=== PATIENT | male | born 1980 | race American Indian/Alaskan Native ===

== ENCOUNTER 2021-05-01 04:12 | Emergency (ER) | payer SELFPAY ==
--- NOTE | 2021-05-01 05:00 | Emergency Department Report ---
ED General Adult HPI - General Chief complaint: Dental/Oral Stated complaint: DENTAL PAIN Source: patient Mode of arrival: Ambulatory Limitations: No Limitations - History of Present Illness Initial comments: Patient is a 40-year-old -[place] male with no past medical history presents to the ED with complaint of acute onset persistent left mandibular premolar molar toothache with swollen gums for the last 2 months, worse in the last 1 week. Patient states that the pain is especially worsened in the last 24 hours such that he was unable to sleep. Patient denies traumatic injury, fever, chills, cough, sore throat, nasal and sinus congestion, headache, change in vision, neck pain, back pain, or neck pain. MD Complaint: Left mandibular molar and premolar toothache with swollen gums -: Gradual, month(s) (2) Location: mouth Radiation: non-radiation Severity scale (0 -10): 7 Quality: aching, sharp Consistency: constant Improves with: none Worsens with: eating Associated Symptoms: denies other symptoms. denies: confusion, chest pain, cough, diaphoresis, fever/chills, loss of appetite, malaise, nausea/vomiting, rash, seizure, shortness of breath, syncope, weakness Treatments Prior to Arrival: none - Related Data Previous Rx's Medication Instructions Recorded Last Taken Type Acetaminophen/Codeine [Tylenol 1 tab PO Q6H PRN #10 tab 05/01/21 Unknown Rx /Codeine # 3 tab] Clindamycin [Clindamycin CAP] 300 mg PO Q6H #40 cap 05/01/21 Unknown Rx Ketorolac [Toradol] 10 mg PO Q6H PRN #20 tab 05/01/21 Unknown Rx Allergies Allergy/AdvReac Type Severity Reaction Status Date / Time No Known Allergies Allergy Verified 05/01/21 04:39 ED Review of Systems ROS: Stated complaint: DENTAL PAIN Other details as noted in HPI Constitutional: denies: chills, fever Eyes: denies: eye pain, eye discharge, vision change ENT: dental pain (Left mandibular premolar molar toothache with swollen gums). denies: ear pain, throat pain Respiratory: denies: cough, shortness of breath, wheezing Cardiovascular: denies: chest pain, palpitations Endocrine: no symptoms reported Gastrointestinal: denies: abdominal pain, nausea, diarrhea Genitourinary: denies: urgency, dysuria Musculoskeletal: denies: back pain, joint swelling, arthralgia Skin: denies: rash, lesions Neurological: denies: headache, weakness, paresthesias Psychiatric: denies: anxiety, depression Hematological/Lymphatic: denies: easy bleeding, easy bruising ED Past Medical Hx - Past Medical History Previous Medical History?: No - Surgical History Past Surgical History?: No - Medications Home Medications: Home Medications Medication Instructions Recorded Confirmed Last Taken Type Acetaminophen/Codeine [Tylenol 1 tab PO Q6H PRN #10 tab 05/01/21 Unknown Rx /Codeine # 3 tab] Clindamycin [Clindamycin CAP] 300 mg PO Q6H #40 cap 05/01/21 Unknown Rx Ketorolac [Toradol] 10 mg PO Q6H PRN #20 tab 05/01/21 Unknown Rx ED Physical Exam - General Limitations: No Limitations General appearance: alert, in no apparent distress - Head Head exam: Present: atraumatic, normocephalic, normal inspection - Eye Eye exam: Present: normal appearance, PERRL, EOMI Pupils: Present: normal accommodation - ENT ENT exam: Present: mucous membranes moist, TM's normal bilaterally, normal exter nal ear exam, other (Swollen, tender left mandibular gingiva; palpable tenderness of right mandibular premolar and molar teeth) - Neck Neck exam: Present: normal inspection, full ROM. Absent: tenderness - Respiratory Respiratory exam: Present: normal lung sounds bilaterally. Absent: respiratory distress, wheezes, rales, stridor, chest wall tenderness, accessory muscle use, decreased breath sounds, prolonged expiratory - Cardiovascular Cardiovascular Exam: Present: regular rate, normal rhythm, normal heart sounds. Absent: systolic murmur, diastolic murmur, rubs, gallop - GI/Abdominal GI/Abdominal exam: Present: soft, normal bowel sounds. Absent: tenderness, guarding, rebound, hyperactive bowel sounds, hypoactive bowel sounds, organomegaly, mass - Extremities Exam Extremities exam: Present: normal inspection, full ROM, normal capillary refill - Back Exam Back exam: Present: normal inspection, full ROM. Absent: tenderness, CVA tenderness (R), CVA tenderness (L), muscle spasm, paraspinal tenderness, vertebral tenderness - Neurological Exam Neurological exam: Present: alert, oriented X3, CN II-XII intact, normal gait, reflexes normal - Psychiatric Psychiatric exam: Present: normal affect, normal mood - Skin Skin exam: Present: warm, dry, intact, normal color. Absent: rash ED Course Vital Signs 05/01/21 04:36 Temperature 98.4 F Pulse Rate 79 Respiratory 17 Rate Blood Pressure 164/75 [Right] O2 Sat by Pulse 97 Oximetry ED Medical Decision Making - Medical Decision Making This is a 40-year-old -[place] male with no past medical history presents to the ED with complaint of acute onset persistent left mandibular premolar molar toothache with swollen gums for the last 2 months, worse in the last 1 week. Patient states that the pain is especially worsened in the last 24 hours such that he was unable to sleep. In the ED, patient is alert and oriented x3 and is not in any distress. Patient was discharged home on pain medications and antibiotics and given a referral to the dentist and was advised to take the antibiotics and pain medications until he and. Patient was advised to follow-up with the dentist in 7 to 10 days for reevaluation or return to the ED immediately if symptoms get worse. - Differential Diagnosis Dental abscess; dental caries; gingivitis Critical care attestation.: If time is entered above; I have spent that time in minutes in the direct care of this critically ill patient, excluding procedure time. ED Disposition Clinical Impression: Acute gingivitis, Dental abscess, Dental caries Disposition: 01 HOME / SELF CARE / HOMELESS Is pt being admited?: No Does the pt Need Aspirin: No Condition: Stable Instructions: Dental Abscess, [id number], Trench Mouth Additional Instructions: Take medication with food, drink plenty of fluids and follow-up with a dentist in 7 to 10 days for reevaluation. Return to the ED immediately if symptoms get worse. Prescriptions: Clindamycin [Clindamycin CAP] 300 mg PO Q6H #40 cap Ketorolac [Toradol] 10 mg PO Q6H PRN #20 tab PRN Reason: Pain Acetaminophen/Codeine [Tylenol /Codeine # 3 tab] 1 tab PO Q6H PRN #10 tab PRN Reason: Pain , Severe (7-10) Referrals: [facility] [Outside] - 7-10 days Time of Disposition: 05:01 Print Language: ROMANIAN
[2021-05-01 05:59] VITALS: BP 151/70
== END 2021-05-01 05:59 | disposition home or self-care (01) ==
LOC: EDBD → ED 04:12
DX: K05.00 Acute gingivitis, plaque induced (principal); K02.9 Dental caries, unspecified; K04.7 Periapical abscess without sinus; Z79.899 Other long term (current) drug therapy
CPT/HCPCS: 99282